=== PATIENT | male | born 1970 | race Caucasian/White ===

== ENCOUNTER 2019-07-17 13:51 | Emergency (ER) | payer OTHER ==
[2019-07-17 14:26] VITALS: TEMP 98.5
--- NOTE | 2019-07-17 14:30 | ED.PDOC ---
History of Present Illness - General Chief Complaint: Laceration Stated Complaint: Forehead laceration Time Seen by Provider: 07/17/19 14:05 - History of Present Illness Initial Comments: 49 y/o male had a michelle hit him in the forehead as he was trying to put up a flag. He had a cap on but the michelle caused a laceration to his forehead. He did not fall and no LOC. Allergies/Adverse Reactions: Allergies NO KNOWN ALLERGY Allergy (Verified 07/17/19 14:25) Home Medications: Ambulatory Orders Ramipril 5 mg PO DAILY 07/17/19 Rosuvastatin Calcium 10 mg PO DAILY 07/17/19 Review of Systems - Review of Systems Constitutional: States: no symptoms reported EENTM: States: no symptoms reported Respiratory: States: no symptoms reported Cardiology: States: no symptoms reported Musculoskeletal: States: no symptoms reported Skin: States: other - laceration to L forehead Neurological: States: no symptoms reported Past Medical History (General) - Patient Medical History Hx Stroke: No Hx of COPD: No Hx Cardiac Disorders: No Hx Hypertension: Yes Hx Diabetes: No Hx Cancer: No Surgical History: appendectomy - Vaccination History Hx Tetanus, Diphtheria Vaccination: No Hx Influenza Vaccination: Yes Hx Pneumococcal Vaccination: No - Social History Hx Tobacco Use: No Hx Alcohol Use: Yes - Occasional Hx Substance Use: No Hx Substance Use Treatment: No Hx Depression: No - Female History Patient is a Female of Child Bearing Age (10 -59 yrs old): No Patient : No Family Medical History - Family History Mother Family History: Unknown Living Status: Still Living Physical Exam - Physical Exam General Appearance: Alert, Comfortable, No apparent distress Eye Exam: bilateral normal Ears, Nose, Throat: other - 2cm laceration L forehead, minimal swelling Neck: non-tender, full range of motion, supple Respiratory: no respiratory distress 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 Copy, Patient Portal Self Enrollment Instructions: DI for Laceration Repair, DI for Laceration Repair With Dermabond Home Medications: Ambulatory Orders Ramipril 5 mg PO DAILY 07/17/19 Rosuvastatin Calcium 10 mg PO DAILY 07/17/19
[2019-07-17] MEDS ORDERED: TETANUS,DIPHTHERIA,PERTUSSIS 1 EA SYG IM ONE (14:41)
[2019-07-17 15:08] VITALS: BP 139/83; O2SAT 99
== END 2019-07-17 15:04 | disposition home or self-care (01) ==
LOC: ER 13:51
DX: S01.81XA Laceration without foreign body of other part of head, initial encounter (principal); W22.8XXA Striking against or struck by other objects, initial encounter; Y92.9 Unspecified place or not applicable